=== PATIENT | male | born 2000 | race Hispanic/Latino ===

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

== ENCOUNTER 2022-10-23 02:11 | Emergency (ER) | payer BC, OTHER ==
[2022-10-23] MEDS ORDERED: Ketorolac Tromethamine 30 MG/ML VIAL ONE (03:43)
== END 2022-10-23 05:43 | disposition home or self-care (01) ==
LOC: ERS 02:11 → EEVIPCON 02:11 → ERS 05:43
DX: S02.2XXA Fracture of nasal bones, initial encounter for closed fracture (principal); W18.30XA Fall on same level, unspecified, initial encounter; Y92.149 Unspecified place in prison as the place of occurrence of the external cause
CPT/HCPCS: 70450; 70486; J1885

== ENCOUNTER 2023-01-23 19:26 | Emergency (ER) | payer BC ==
[2023-01-23 20:10] LABS: #Basophils 0.1 thou/uL (0.0-0.2); #Eosinphils 0.1 thou/uL (0.0-0.7); #Monocytes 0.6 thou/uL (0.11-0.59); #Neutrophils 7.4 thou/uL (1.40-6.50); %Basophils 0.7 % (0.0-1.0); %Eosinophils 0.5 % (0.0-10.0); %Lymphocytes 16.4 % (28.0-48.0); %Monocytes 5.9 % (0.0-4.0); %Neutrophils 75.2 % (31.0-61.0); Hematocrit 48.3 % (42.0-52.0); Hemoglobin 16.4 g/dL (14.0-18.0); Mean Corpuscular Hemoglobin 30.2 pg (25.0-35.0); Mean Platelet Volume 9.5 fL (7.4-10.4); Platelet Count 256 10x3/uL (130-400); Red Blood Cell (RBC) Count 5.43 mill/uL (4.00-5.20); White Blood Cell (WBC) Count 9.8 10x3/uL (4.8-10.8)
[2023-01-23 20:36] LABS: Troponin I Less than 0.010 ng/mL (< 0.028)
[2023-01-23 20:43] LABS: ALT (SGPT) 47 U/L (8-55); AST (SGOT) 24 U/L (5-34); Albumin 4.6 g/dL (3.5-5.0); Alkaline Phosphatase 80 U/L (50-130); Anion Gap 14 mmol/L (10-20); BUN (Urea Nitrogen) 22 mg/dL (8.9-20.6); Bilirubin, Total 0.8 mg/dL (0.2-1.2); Calc. Creatinine Clearance 0 mL/min (70-130); Calcium 9.4 mg/dL (7.8-10.44); Carbon Dioxide 21 mmol/L (22-29); Chloride 105 mmol/L (98-107); Estimated GFR 126; Globulin 2.6 g/dL (2.4-3.5); Glucose 131 mg/dL (70-105); Lipase 29 U/L (8-78); Protein, Total 7.2 g/dL (6.0-8.3); Sodium 136 mmol/L (136-145)
[2023-01-23] MEDS ORDERED: Ondansetron ODT 4 MG TAB ONE (21:04)
[2023-01-23] MEDS ORDERED: Lidocaine 2% Viscous Solution 10 ML, Aluminum & Magnesium Hydroxide 30 ML SSW SCH (21:15)
[2023-01-23 21:31] LABS: Bilirubin Negative (Negative); Blood, Urine Negative (Negative); CAUTI Indications for Culture Dysuria,urgency,freq; Clarity Clear (Clear); Glucose, Urine (Dipstick) Normal (Negative); Ketone, Urine Negative (Negative); Leukocyte 250 Leu/uL (Negative); Nitrite Negative (Negative); Protein, Urine (Dipstick) Negative (Neg-Trace); RBC/HPF 0-3 HPF (0-3); Renal Epithelial 0-3 HPF (None Seen); Specific Gravity, Urine 1.022 (1.002-1.036); Squamous Epithelial 0-3 HPF (0-3); Urobilinogen Normal mg/dL (Less than 2)
[2023-01-23 21:32] LABS: Bacteria/HPF 1+ HPF (None Seen); Urine Culture Reflex Yes Yes
[2023-01-24 11:33] LABS: Chlam.trachomatis by PCR,Urine Not Detected (NotDetected); GC N.gonorrhoeae PCR,UrineVOID Not Detected (NotDetected)
== END 2023-01-23 22:35 | disposition home or self-care (01) ==
LOC: ERS 19:26
DX: R11.0 Nausea (principal); R10.13 Epigastric pain
CPT/HCPCS: 36415; 71045; 80053; 81001; 83690; 84484; 85025; 87086; 87491; 87591; 93005; Q0162

== ENCOUNTER 2023-02-22 17:22 | Emergency (ER) | payer OTHER, BC ==
[2023-02-22] MEDS ORDERED: Ibuprofen 800 MG TAB ONE (19:14)
[2023-02-22] MEDS ORDERED: Amoxicillin/Potassium Clav 875 MG TAB ONE (19:14)
[2023-02-22] MEDS ORDERED: Lidocaine 1% w/Epinephrine 1:100K 20 ML VIAL ONE (19:39)
== END 2023-02-22 20:21 ==
LOC: ERS 17:22
DX: S02.2XXA Fracture of nasal bones, initial encounter for closed fracture (principal); S02.401A Maxillary fracture, unspecified side, initial encounter for closed fracture; S01.111A Laceration without foreign body of right eyelid and periocular area, initial encounter; Y04.0XXA Assault by unarmed brawl or fight, initial encounter; Y93.75 Activity, martial arts
CPT/HCPCS: 12001; 70450; 70486

== ENCOUNTER 2024-01-28 21:01 | Emergency (ER) | payer BC, OTHER | END 2024-01-28 22:38 | LOC: EEVIPCON 21:01 → ERS 21:01 | DX: S00.83XA Contusion of other part of head, initial encounter (principal); F17.210 Nicotine dependence, cigarettes, uncomplicated; W22.01XA Walked into wall, initial encounter; Y93.89 Activity, other specified; Y92.149 Unspecified place in prison as the place of occurrence of the external cause | CPT/HCPCS: 70450 ==